=== PATIENT | female | born 1960 | race American Indian/Alaskan Native ===

== ENCOUNTER 2017-07-23 14:28 | Emergency (ER) | payer SELFPAY ==
[2017-07-23 15:37] VITALS: BMI 26.9
--- NOTE | 2017-07-23 17:04 | C.PDOC ---
History Of Present Illness 57-year-old female, PMHx includes Depression and Anxiety, presents to the emergency department with complaints of depression and anxiety, gradually worsening over the past few days. Patient states she does not want to live anymore, but does not have a plan. Additionally, she notes that yesterday, she had an episode where she fell to the ground and may have had a syncopal episode. She reports she did not get up off the floor, and had to take time to collect herself. Denies any HI. No nausea/vomiting, chest pain, fevers, chills, shortness of breath or any other associated symptoms. No other complaints at this time. She currently has no psychiatrist and has run out of [employer]. She is requesting a prescription for several days to hold her over. Time Seen by Provider: 07/23/17 16:11 Chief Complaint (Nursing): Psychiatric Evaluation History Per: Patient History/Exam Limitations: no limitations Onset/Duration Of Symptoms: Days Current Symptoms Are (Timing): Still Present Past Medical History Reviewed: Historical Data, Nursing Documentation, Vital Signs - Medical History PMH: Anxiety, Bipolar Disorder, Depression Family History: States: No Known Family Hx - Social History Hx Alcohol Use: No Hx Substance Use: No - Immunization History Hx Tetanus Toxoid Vaccination: No Hx Influenza Vaccination: No Hx Pneumococcal Vaccination: No Review Of Systems Constitutional: Negative for: Fever, Chills Cardiovascular: Negative for: Chest Pain, Palpitations Respiratory: Negative for: Shortness of Breath Gastrointestinal: Negative for: Nausea, Vomiting, Abdominal Pain Neurological: Negative for: Headache, Dizziness Psych: Positive for: Anxiety, Depression, Suicidal ideation Physical Exam - Physical Exam Appears: Non-toxic, No Acute Distress Skin: Normal Color, Warm, Dry, No Rash Head: Normacephalic Eye(s): bilateral: Normal Inspection, PERRL Nose: Normal Oral Mucosa: Moist Lips: Normal Appearing Neck: Normal ROM Cardiovascular: Rhythm Regular, No Murmur Respiratory: Normal Breath Sounds, No Accessory Muscle Use Extremity: Normal ROM, No Deformity, No Swelling Neurological/Psych: Oriented x3, Normal Speech ED Course And Treatment Progress Note: Pending crisis evaluation. Patient was seen in the ED by crisis. She states she is not suicidal and is willing to contact a provider as an out patient tomorrow. Disposition - Disposition Referrals: [facility] [Outside] Disposition: HOME/ ROUTINE Disposition Time: 17:15 Condition: STABLE Prescriptions: Aripiprazole [Abilify] 20 mg PO BID #20 tablet Instructions: Depression, Bipolar Disorder Forms: [facility] (Eritrean) - Clinical Impression Clinical Impression: Bipolar disorder, Depression - Scribe Statement The provider has reviewed the documentation as recorded by the Scribe (Fernanda Branch) All medical record entries made by the Scribe were at my direction and personally dictated by me. I have reviewed the chart and agree that the record accurately reflects my personal performance of the history, physical exam, medical decision making, and the department course for this patient. I have also personally directed, reviewed, and agree with the discharge instructions and disposition.
[2017-07-23 17:39] VITALS: PULSE 77; RESP 16; TEMP 98.3; O2SAT 97
== END 2017-07-23 17:25 | disposition home or self-care (01) ==
LOC: C.ER 14:28
DX: F32.9 Major depressive disorder, single episode, unspecified (principal)